=== PATIENT | male | born 1965 | race Caucasian/White ===

== ENCOUNTER 2016-10-04 14:02 | Emergency (ER) | payer OTHER ==
[~2016-10-04] VITALS: Ht 167.6 cm; Wt 79.8 kg
[2016-10-04] MEDS ORDERED: SULFAMETHOXAZO1 EAC1 PO (14:43)
[2016-10-04] MEDS ORDERED: ZETIA10 M1 PO (14:43)
[2016-10-04 15:48] LABS: ABSOLUTE BASOPHIL COUNT 0 /CUMM (0.0-0.2); ABSOLUTE EOSINOPHIL COUNT 0 /CUMM (0.0-0.7); ABSOLUTE GRANULOCYTE CT 13.4 /CUMM (1.4-6.5); ABSOLUTE LYMPH COUNT 0.9 /CUMM (1.2-3.4); ABSOLUTE MONOCYTE COUNT 1.6 /CUMM (0.10-0.60); BASOPHIL % 0.1 % (0.0-2.0); EOSINOPHIL % 0.1 % (0-5); GRANULOCYTE % 84.1 % (42.2-75.2); HEMATOCRIT 40.5 % (42-52); MEAN CORPUSCULAR HGB 32.5 PG (27.0-31.0); MEAN CORPUSCULAR HGB CONC 34.1 G/DL (33.0-37.0); MEAN CORPUSCULAR VOLUME 95.2 FL (80.0-94.0); MEAN PLATELET VOLUME 6.8 FL (7.4-10.4); PLATELET COUNT 296 /CUMM (130-400); RBC DISTRIBUTION WIDTH 12.9 % (11.5-14.5); RED BLOOD CELL CT 4.25 /CUMM (4.70-6.10); WHITE BLOOD CELL COUNT 15.9 /CUMM (4.8-10.8)
--- NOTE | 2016-10-04 15:58 | RADIOLOGY REPORT ---
EXAMINATION: XR PORTABLE CHEST CLINICAL INFORMATION: Fatigue and tachycardia. Sepsis. Evaluate for pneumonia. COMPARISON: None TECHNIQUE: Portable AP view of the chest was obtained. FINDINGS: Lungs are hypoinflated and without focal consolidation or interstitial edema. There is no pleural effusion or pneumothorax. Cardiac silhouette is normal in size. The mediastinal and hilar contours are normal. Bones are unremarkable. IMPRESSION: No acute findings; no evidence of pneumonia, pulmonary edema or pleural effusion.
--- NOTE | 2016-10-04 16:44 | ED GENERAL ADULT ---
See Addendum History of Present Illness General Chief Complaint: General Adult Stated Complaint: DEHYDRATION Source: patient Exam Limitations: no limitations Allergies Coded Allergies: No Known Allergies (10/04/16) Triage Note: 51 Y/O MALE C/O ? DEHYDRATION. STATES HE HAS BEEN SICK FOR OVER A WEEK WITH N/V/D, FEELS "DISORIENTED". STATES HE IS ABLE TO TOLERATE LIQUIDS BUT NO FOOD. C/O BODY AND MUSCLE ACHES. AFEBRILE. TACHYCARDIC 120'S-130'S. Triage Nurses Notes Reviewed? yes HPI: 51 year old man with a past medical history of hypertension seen for evaluation of feeling ill with associated nausea, vomiting, and diarrhea. He reports being in his normal state of health until 11 days ago when he helped multiple neighbors shovel snow during the snow storm. He reports feeling fatigued until that following Sunday when he developed associated nausea, vomiting, and diarrhea. He admits to feeling disoriented at times and dizzy, which he attributes to dehydration. Today he saw his primary care provider at [facility] whom reportedly did a urine dipstick and diagnosed a urinary tract infection for which he was prescribed Bactrim. In lieu of picking of this prescription he came to the [facility] ED for further evaluation. (DEVON MCCURDY,JOSE M) Vital Signs & Intake/Output Vital Signs & Intake/Output Vital Signs Date Time Temp Pulse Resp B/P Pulse O2 O2 Flow FiO2 Ox Delivery Rate 10/04 1832 99.0 105 18 136/78 95 Room Air Room Air 10/04 1629 98.8 10/04 1622 98.8 102 20 135/77 93 Room Air 10/04 1455 101.8 10/04 1429 101.8 113 22 96 Room Air 10/04 1407 98.0 132 16 158/91 95 Room Air Reconcile Medications Ciprofloxacin HCl 500 MG TABLET 1 TAB PO BID PYELONEPHRITIS Ezetimibe (Zetia) 10 MG TABLET 1 TAB PO DAILY CHOLESTEROL (Reported) Sulfamethoxazole/Trimethoprim (Sulfamethoxazole-Tmp Ds Tablet) 800 MG-160 MG TABLET 1 TAB PO BID INFECTION (Reported) (AZAR MCCURDY,JA Patricia) Past History Travel History Traveled to [place] past 21 day No Medical History Any Pertinent Medical History? 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 No (JOSE M OSORIO MD) Review of Systems Review of Systems Constitutional: Reports: see HPI. (JOSE M OSORIO MD) Physical Exam Physical Exam General Appearance: well developed/nourished, no apparent distress, alert, awake Comments: General - well developed, well nourished, middled aged man in no acute distress Skin - warm and clammy to touch without brusing or rashes HEENT - NCAT, PERRL, EOMI, dry mucous membranes, anicteric sclera CVS - S1, S2 w/o m/g/r Resp - CTA Bilaterally w/o wheezing/rhonchi/crackles GI - Soft, nontender, nondistended, bowel sounds intact Neuro - Awake and alert, CN II - XII grossly intact Ext - normal pulses, no cyanosis/clubbing/edema Core Measures ACS in differential dx? No CVA/TIA Diagnosis: No Severe Sepsis Present: No Septic Shock Present: No (JOSE M OSORIO MD) Progress Differential Diagnoses I considered the following diagnoses in my evaluation of the patient: urinary tract infection, prostatitis Initial ED EKG: none Comments: Complete blood count demonstrates leukocytosis. CMP demonstrates multiple electrolyte abnormalities most likley secondary to dehydration. UA is suggestive of a urinary tract infection. Patient was given intravenous fluid resuscitation and a dose of Ceftriaxone. Given patients elevated temperature, elevated heart rate and positive urinalysis he meets criteria for sepsis. CT scan demonstrated pyelonephritis. Patient was educated about these findings, he was instructed to take ciprofloxacin for a total antibiotic course of 14 days and to follow up with his primary care provider after discharge. (JOSE M OSORIO MD) Plan of Care: Orders Procedure Date/time Status LACTIC ACID 10/04 1807 Active RAPID VIRAL INFLUENZA A 10/04 1507 Complete CULTURE,URINE 10/04 1507 Active BLOOD CULTURE 10/04 1507 Active URINALYSIS 10/04 1507 Complete LACTIC ACID 10/04 1507 Complete COMPREHENSIVE METABOLIC PANEL 10/04 1507 Complete CBC WITHOUT DIFFERENTIAL 10/04 1507 Complete EKG 10/04 1412 Active Laboratory Tests 10/04/16 1532: Urine Color YEL, Urine Clarity HAZY H, Urine pH 6.5, Ur Specific Newton <= 1.005, Urine Protein 30 H, Urine Ketones 40 H, Urine Nitrite NEG, Urine Bilirubin NEG, Urine Urobilinogen 1.0, Ur Leukocyte Esterase MOD H, Ur Microscopic SEDIMENT EXAMINED, Urine RBC 5-10 H, Urine WBC 10-15 H, Ur Epithelial Cells FEW, Urine Hemoglobin MOD H, Urine Glucose NEG 10/04/16 1529: Anion Gap 14, Estimated GFR > 60, BUN/Creatinine Ratio 7.0, Glucose 120 H, Lactic Acid 0.7, Calcium 8.1 L, Total Bilirubin 0.7, AST 25, ALT 41, Alkaline Phosphatase 99, Total Protein 6.0 L, Albumin 3.2 L, Globulin 2.8, Albumin/ Globulin Ratio 1.1, CBC w Diff NO MAN DIFF REQ, RBC 4.25 L, MCV 95.2 H, MCH 32.5 H, RDW 12.9, MPV 6.8 L, Gran % 84.1 H, Lymphocytes % 5.8 L, Monocytes % 9.9 H, Eosinophils % 0.1, Basophils % 0.1, Absolute Granulocytes 13.4 H, Absolute Lymphocytes 0.9 L, Absolute Monocytes 1.6 H, Absolute Eosinophils 0, Absolute Basophils 0, PUBS MCHC 34.1 Microbiology 10/04 1619 NASOPHARYN: Influenza Virus A & B Rapid Smear - COMP 10/04 1619 BLOOD: Blood Culture - RECD 10/04 1532 URINE ROUT: Urine Culture - RECD 10/04 1529 BLOOD: Blood Culture - RECD Departure Departure Disposition: HOME OR SELF CARE Condition: Stable Clinical Impression Primary Impression: Pyelonephritis Referrals: JADA MCKENZIE (PCP/Family) Additional Instructions: Take ciprofloxacin as directed. FOllow up with your primary care provider after discharge. Call 911 or return to the ED should your symptoms worsen. Departure Forms: Customer Survey General Discharge Information Prescriptions: Current Visit Scripts Ciprofloxacin HCl 1 TAB PO BID #28 TAB (DEVON MCCURDY,JOSE M) Resident Co-Sign Statement Statement: ED Attending supervision documentation- [X] I saw and evaluated the patient. I have also reviewed all the pertinent lab results and diagnostic results. I agree with the findings and the plan of care as documented in the Resident's documentation. [X] I have reviewed the ED Record and agree with the Resident's documentation. [] Additions or exceptions (if any) to the Resident's note and plan are summarized below: [I have personally seen and examined this patient. Patient presents with one- week history of fevers, shaking chills, myalgias and intermittent confusion. Patient denies any blurry vision or neck pain. There is no nausea or vomiting. On exam he is febrile. His neck is supple and there is no JVD. His cardiac exam is regular rate and rhythm with no murmurs. His abdomen is soft and nontender, nondistended with positive bowel sounds. His back shows no CVA tenderness. On rectal exam his prostate is warm to touch and slightly boggy. His extremities show no edema or erythema. His CAT scan is more consistent with cystitis with stranding adding up towards the kidney. At this point patient will be started on antibiotics to cover both the renal system as well as the prostate. Patient advised that he may continue to run high fevers from to 4 days. Patient feels comfortable going home.] (AZAR MCCURDY,JA Patricia) Critical Care Note Critical Care Note Critical Care Time: non-applicable (DEVON MCCURDY,JOSE M)
--- NOTE | 2016-10-04 17:36 | CT SCAN REPORT ---
EXAMINATION: CT ABDOMEN AND PELVIS WITH CONTRAST CLINICAL INFORMATION: Warm boggy prostate. Evaluate for intra-abdominal abscess. COMPARISON: None. TECHNIQUE: Multidetector CT volumetric acquisition of the abdomen and pelvis was performed after the administration of 95 mL of intravenous Optiray 320. The data set was reformatted in the sagittal and coronal planes and reviewed on an independent workstation. DLP: 311.39 mGy-cm. FINDINGS: LOWER CHEST: Mild dependent atelectasis is seen in the lung bases bilaterally. LIVER, GALLBLADDER, BILIARY TREE: Liver normal size and attenuation. No focal cystic or solid mass or intra-or extrahepatic ductal dilatation. Hepatic and portal veins patent. Gallbladder well distended and within normal limits. PANCREAS: Mildly atrophic. No ductal dilatation, mass, or surrounding stranding. SPLEEN: Normal size and appearance. Splenic vein patent. ADRENAL GLANDS AND KIDNEYS: Adrenal glands normal. Kidneys bilaterally symmetric in size and function. No focal mass, hydronephrosis, or nephrolithiasis. There is, however, prominent bilateral perinephric stranding and slight thickening of Gerota's fascia. There is also small amount of retroperitoneal edema seen tracking along the anterior pararenal space into the pelvis anterior to the aorta and the aortic bifurcation. URETERS AND BLADDER: Ureters decompressed and within normal limits. Bladder only partially distended and suboptimally assessed, but there is diffuse mucosal hyperenhancement and diffuse hyperemia in the pericystic fat. PELVIC ORGANS: Prostate gland is not enlarged and overall unremarkable in appearance. Seminal vesicles appear slightly rounded and may be mildly edematous. The periprostatic fat is unremarkable. No focal abscess collection is seen. GASTROINTESTINAL TRACT: Nonspecific mild fluid distention of ileal small bowel loops is seen, perhaps a subtle ileus pattern. No bowel wall thickening, mucosal hyperenhancement or mesenteric edema or hyperemia is noted. The colon is decompressed and unremarkable. Appendix in right lower quadrant normal. LYMPHOVASCULAR STRUCTURES: Abdominal aorta normal in caliber. No abdominal or pelvic adenopathy is seen. BONES: Mild multilevel vertebral spondylosis is seen in the thoracolumbar spine. IMPRESSION: The predominant finding is that of diffuse prominent retroperitoneal stranding and mild edema extending from the level of the kidneys down to the bladder. The bladder is diffusely thick-walled and shows mucosal hyperenhancement and surrounding hyperemia. Findings are suspicious for acute cystitis with associated mild inflammatory changes spreading through the retroperitoneum. No focal drainable abscess collection is seen. By imaging, the prostate gland appears unremarkable. Seminal vesicles may be mildly edematous.
[2016-10-04] MEDS ORDERED: CIPROFLOXACIN500 M2 PO (18:15)
[2016-10-04 18:32] VITALS: BP 136/78
[2016-10-05] MEDS ORDERED: MULTI-DAY VITA1 EACH PO (17:26)
[2016-10-05] MEDS ORDERED: CRESTOR20 M2 PO (17:26)
== END 2016-10-04 18:48 ==
LOC: ERH 14:02
PROVIDERS: Internal Medicine Interventional Cardiology
DX: N12 Tubulo-interstitial nephritis, not specified as acute or chronic (principal)
CPT/HCPCS: 74177; 81001; 87040; 87086; 87804; 87804-59; 93005; 93010; 96374; 96375; J0131; J0696

== ENCOUNTER 2016-10-05 14:14 | Inpatient (IN) | payer OTHER ==
[~2016-10-05] VITALS: Ht 167.6 cm; Wt 79.8 kg
[~2016-10-05 14:14] MED LIST: CIPROFLOXACIN500 M2 PO; SULFAMETHOXAZO1 EAC1 PO; ZETIA10 M1 PO
[2016-10-05 14:42] LABS: ABSOLUTE BASOPHIL COUNT 0 /CUMM (0.0-0.2); ABSOLUTE EOSINOPHIL COUNT 0 /CUMM (0.0-0.7); ABSOLUTE GRANULOCYTE CT 15.2 /CUMM (1.4-6.5); ABSOLUTE LYMPH COUNT 0.6 /CUMM (1.2-3.4); ABSOLUTE MONOCYTE COUNT 0.7 /CUMM (0.10-0.60); BASOPHIL % 0.3 % (0.0-2.0); EOSINOPHIL % 0.1 % (0-5); GRANULOCYTE % 91.4 % (42.2-75.2); MEAN CORPUSCULAR HGB 32.2 PG (27.0-31.0); MEAN CORPUSCULAR HGB CONC 33.4 G/DL (33.0-37.0); MEAN CORPUSCULAR VOLUME 96.4 FL (80.0-94.0); MEAN PLATELET VOLUME 6.6 FL (7.4-10.4); PLATELET COUNT 289 /CUMM (130-400); RBC DISTRIBUTION WIDTH 13.2 % (11.5-14.5); RED BLOOD CELL CT 4.36 /CUMM (4.70-6.10); WHITE BLOOD CELL COUNT 16.7 /CUMM (4.8-10.8)
--- NOTE | 2016-10-05 16:42 | ED GENERAL ADULT ---
History of Present Illness General Chief Complaint: General Adult Stated Complaint: CALLED BY ER TO COME BACK Source: patient, old records Exam Limitations: no limitations Vital Signs & Intake/Output Vital Signs & Intake/Output Vital Signs Date Time Temp Pulse Resp B/P Pulse O2 O2 Flow FiO2 Ox Delivery Rate 10/07 0701 98.0 78 16 130/90 94 Room Air 10/06 2228 99.0 97 20 130/70 94 Room Air 10/06 2008 99.0 10/06 1703 100.3 10/06 1412 99.0 91 20 130/72 91 10/06 1251 99.0 10/06 1152 101.0 ED Intake and Output 10/07 0000 10/06 1200 Intake Total 3220 1400 Output Total Balance 3220 1400 Intake, IV 1100 800 Intake, Oral 2120 600 Allergies Coded Allergies: No Known Allergies (10/04/16) Reconcile Medications Ciprofloxacin HCl 500 MG TABLET 1 TAB PO BID PYELONEPHRITIS Ezetimibe (Zetia) 10 MG TABLET 1 TAB PO DAILY CHOLESTEROL (Reported) Multivitamin (Multi-Day Vitamins) 1 EACH TABLET 1 TAB PO DAILY SUPPLEMENT ( Reported) Rosuvastatin Calcium (Crestor) 20 MG TABLET 1 TAB PO DAILY CHOLESTEROL ( Reported) Triage Note: PT WAS SEEN IN ER YESTERDAY FOR BEING WEAK, HIGH FEVER AND NO APPETITTE. STATES THAT HE WAS CALLED BY 2 DIFFERENT DOCTORS TODAY TO RETURN DUE TO 2 POSITIVE BLOOD CULTURES. PT IS AFEBRILE AT THIS TIME. Triage Nurses Notes Reviewed? yes HPI: Patient is a 51-year-old male called to return to emergency department for evaluation of possible blood cultures. Patient was seen in the emergency department yesterday for evaluation of weakness, fevers, chills. Patient was discharged home on ciprofloxacin for pyelonephritis. Today patient had both sets of blood cultures grew out gram-negative rods along with his urine culture showing gram-negative rods. Patient had fevers yesterday, reports that the fevers resolved after his dose of IV Tylenol. Today patient has felt diaphoretic but reports he feels improved compared with yesterday. Symptoms were severe yesterday. Denies abdominal pain, back pain, nausea, vomiting, dyspnea. Past History Travel History Traveled to [place] past 21 day No Medical History Any Pertinent Medical History? 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 No Review of Systems Review of Systems Constitutional: Reports: chills, diaphoresis, fever, malaise, weakness. EENTM: Reports: no symptoms. Respiratory: Denies: cough, short of breath. Cardiovascular: Denies: chest pain. GI: Denies: abdominal pain, nausea, vomiting. Genitourinary: Reports: no symptoms. Musculoskeletal: Denies: back pain, neck pain. Skin: Reports: no symptoms. Neurological/Psychological: Reports: no symptoms. Hematologic/Endocrine: Reports: no symptoms. Immunologic/Allergic: Reports: no symptoms. Physical Exam Physical Exam General Appearance: well developed/nourished, alert, awake Head: atraumatic, normal appearance Eyes: Bilateral: normal appearance, PERRL, EOMI. Ears, Nose, Throat: normal pharynx, normal ENT inspection, hearing grossly normal Neck: normal inspection, supple, full range of motion Respiratory: normal breath sounds, chest non-tender, no respiratory distress, lungs clear Cardiovascular: tachycardia (REGULAR RHYTHM, NO MURMUR) Gastrointestinal: normal bowel sounds, soft, non-tender Back: normal inspection, normal range of motion Extremities: normal inspection, normal capillary refill, normal range of motion, no edema Neurologic/Psych: no motor/sensory deficits, awake, alert, oriented x 3, normal gait, normal mood/affect Skin: intact, normal color, warm/dry Lymphatic: no anterior cervical eduin Core Measures ACS in differential dx? No CVA/TIA Diagnosis: No Severe Sepsis Present: No Septic Shock Present: No Progress Differential Diagnoses I considered the following diagnoses in my evaluation of the patient: Sepsis, bacteremia, urinary tract infection, pneumonia, intra-abdominal infection Plan of Care: Orders Procedure Date/time Status MAGNESIUM 10/07 0600 Active CBC WITHOUT DIFFERENTIAL 10/07 0600 Active BASIC ELECTROLYTES PLUS BUN&CR 10/07 06 Active MAGNESIUM 10/06 2000 Complete Current Medications Sig/Claudette Start time Last Medication Dose Stop Time Status Admin Docusate Sodium 100 MG BID 10/06 1345 AC (Colace) Senna 187 MG AT BEDTIME 10/06 1345 AC (Senokot) Polyethylene Glycol 17 GM DAILY 10/06 1343 AC (Miralax) Enoxaparin Sodium 40 MG DAILY 10/06 1000 AC (Lovenox) Laboratory Tests 10/06/16 2000: Magnesium 2.4 H Patient is unsure if he can stay in the hospital due to a commitment on Sunday. I discussed with the patient his results from yesterday, the dangers of bacteremia and importance of IV antibiotics. With patient's white blood cell count increasing, his diaphoresis today and tachycardia on exam. The patient should be admitted for further IV antibiotics and evaluation. IV ceftriaxone ordered. 10/05/2016 5:09:52 PM: Discussed with and evaluated by Dr. Reddy ([facility]) Initial ED EKG: none Departure Departure Time of Disposition: 1816 Disposition: STILL A PATIENT Condition: Stable Clinical Impression Primary Impression: Bacteremia due to Gram-negative bacteria Secondary Impressions: Urinary tract infection Qualifiers: Urinary tract infection type: site unspecified Hematuria presence: without hematuria Qualified Code: N39.0 - Urinary tract infection, site not specified Referrals: JADA MCKENZIE (PCP/Family) Departure Forms: Customer Survey General Discharge Information Admission Note Spoke With: ELISEO BELLO MD Documentation of Exam: Documentation of any treatments & extenuating circumstances including Concerns Regarding Discharge (functional status, medication knowledge or non-compliance, living conditions, etc.) that warrant an admission rather than observation: Panculture, IV antibiotics. Patient with increasing white blood cell count despite being on antibiotics for approximately 24 hours. Concern given 2 out of 2 sets of cultures positive that if discharged patient will continue to worsen. Critical Care Note Critical Care Note Critical Care Time: non-applicable
[2016-10-05] MEDS ORDERED: MULTI-DAY VITA1 EACH PO (17:26)
[2016-10-05] MEDS ORDERED: CRESTOR20 M2 PO (17:26)
[2016-10-05 20:53] VITALS: BP 132/80
--- NOTE | 2016-10-05 21:42 | Admission Certification ---
Admission Certification Certification Statement - As attending physician, I certify that at the time of - admission, based on clinical presentation, severity of - symptoms, need for further diagnostic testing and - therapeutic interventions, and risk of adverse outcomes - without in-hospital treatment, in my clinical assessment, - this patient requires an acute hospital stay for a minimum - of two nights or longer. I have also considered psychsocial - factors such as support system, advanced age, financial - issues, cognitive issues, and failed out-patient treatments, - past re-admission history, safety of patient, and lack of - compliance as applicable. Specific rationale supporting this admission is: Sepsis, gram negative bacteremia 2/2 UTI and pyelonephritis. KENDRA.
--- NOTE | 2016-10-05 22:31 | History & Physical ---
MANUEL MCCURDY,ESTHELA 10/05/16 2230: General Information and HPI MD Statement: I have seen and personally examined BRANDYN GENTILE and documented this H&P. The patient is a 51 year old M who presented with a patient stated chief complaint of []. Source of Information: patient, old records History of Present Illness: Patient is a 51-year-old male with significant past medical history of hyperlipidemia, presented with chief complaints of nausea, vomiting, diarrhea , generalized body ache since last 2 weeks. Patient claims that he was diagnosed as having urinary tract infection by his PCP, when he was complaining of generalized body ache and advised to take Bactrim. But he wanted to confirm and so he came to the [place] ED. Here, he found to have temperature of 101.8. blood work up was done and advised to take tablet ciprofloxacin and sent home yesterday. Later on, on his blood cultures come back positive for gram-negative rods, so he was called back to get IV antibiotic. CT scan of abdomen was already done, which showed acute cystitis with extension of inflammation to retroperitoneal area. On further evaluation He states that he was also having polyuria, hesitancy. He is sexually active and having only 1 partner. He denies of any discharge, itching around penis, foul-smelling urine, nephrolithiasis, sexually transmitted infection, hematuria, past history of urinary tract infection. Patient also complaining of episodes of no breathing. He was advised to have sleep study 6 months ago, but he is not able to make it. He was requesting to get it done during this admission. Personal history-denies smoking, uses alcohol occasionally, denies use of any recreational drugs. Allergies/Medications Allergies: Coded Allergies: No Known Allergies (10/04/16) Home Med list Ciprofloxacin HCl 500 MG TABLET 1 TAB PO BID PYELONEPHRITIS Ezetimibe (Zetia) 10 MG TABLET 1 TAB PO DAILY CHOLESTEROL (Reported) Multivitamin (Multi-Day Vitamins) 1 EACH TABLET 1 TAB PO DAILY SUPPLEMENT ( Reported) Rosuvastatin Calcium (Crestor) 20 MG TABLET 1 TAB PO DAILY CHOLESTEROL ( Reported) Compliance With Home Meds: GOOD Past History Travel History Traveled to [place] past 21 day No Medical History Neurological: NONE EENT: NONE Cardiovascular: NONE Respiratory: NONE Gastrointestinal: NONE Hepatic: NONE Renal: NONE Musculoskeletal: NONE Psychiatric: NONE Endocrine: NONE Blood Disorders: NONE Cancer(s): NONE 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 Denies: chills, diaphoresis, malaise. EENTM: Denies: no symptoms. Cardiovascular: Denies: chest pain, edema, orthopena, palpitations, peripheral edema. Respiratory: Denies: cough, hemoptysis, orthopnea, short of breath, sputum production, stridor. GI: Reports: diarrhea. Denies: abdominal pain, bloating, constipation, distention, bowel incontinence, melena, nausea, bloody stool, changes in stool. Genitourinary: Reports: frequency, pain. Denies: discharge, dysuria, hematuria, hesitation, nocturia. Musculoskeletal: Reports: back pain. Denies: gout, joint pain, joint swelling, muscle pain, muscle stiffness. Skin: Denies: no symptoms. Neurological/Psychological: Denies: no symptoms. Exam & Diagnostic Data Last 24 Hrs of Vital Signs/I&O Vital Signs Date Time Temp Pulse Resp B/P Pulse O2 O2 Flow FiO2 Ox Delivery Rate 10/05 2322 100.9 10/05 2052 100.9 108 20 132/80 99 Room Air 10/05 2020 99.9 102 18 144/87 97 Room Air 10/05 1813 99 10/05 1812 99.2 104 20 140/87 99 Room Air 10/05 1425 97.8 100 18 117/79 96 Room Air Intake & Output 10/06 0800 10/06 0000 10/05 1600 Intake Total 1000 Output Total Balance 1000 Intake, IV 1000 Patient 79.832 kg 79.832 kg Weight Physical Exam General Appearance Alert, Oriented X3, Cooperative, No Acute Distress Skin No Rashes, No Breakdown HEENT Atraumatic, PERRLA, EOMI Neck Supple, No JVD Cardiovascular Normal S1, Normal S2 Lungs Clear to Auscultation, Normal Air Movement Abdomen Soft, No Tenderness Neurological Normal Speech Extremities No Clubbing, No Cyanosis, No Edema Vascular Normal Pulses, Pulses Symmetrical Last 24 Hrs of Labs/[place]: Laboratory Tests 10/05/16 1641: Urine Color YEL, Urine Clarity CLEAR, Urine pH 6.0, Ur Specific [place] 1.010, Urine Protein 100 H, Urine Ketones 15 H, Urine Nitrite NEG, Urine Bilirubin NEG, Urine Urobilinogen 2.0 H, Ur Leukocyte Esterase MOD H, Ur Microscopic SEDIMENT EXAMINED, Urine RBC 5-10 H, Urine WBC 25-50 H, Ur Epithelial Cells FEW, Urine Hemoglobin MOD H, Urine Glucose NEG 10/05/16 1433: Anion Gap 14, Estimated GFR 59 L, BUN/Creatinine Ratio 10.0, Glucose 123 H, Lactic Acid 1.3, Calcium 8.3 L, CBC w Diff MAN DIFF ORDERED, RBC 4.36 L, MCV 96.4 H, MCH 32.2 H, RDW 13.2, MPV 6.6 L, Gran % 91.4 H, Lymphocytes % 3.8 L , Monocytes % 4.4, Eosinophils % 0.1, Basophils % 0.3, Absolute Granulocytes 15.2 H, Segmented Neutrophils 89 H, Band Neutrophils 5, Absolute Lymphocytes 0.6 L, Lymphocytes 1 L, Monocytes 5, Absolute Monocytes 0.7 H, Absolute Eosinophils 0, Absolute Basophils 0, Platelet Estimate ADEQUATE, Normocytic RBCs VERIFIED, Normochromic RBCs VERIFIED, PUBS MCHC 33.4 Microbiology 10/05 1441 BLOOD: Blood Culture - RECD 10/05 1433 BLOOD: Blood Culture - RECD Diagnostic Data EKG Results NSR CXR Results No acute findings; no evidence of pneumonia, pulmonary edema or pleural effusion. Other Results CT ABD /Pelvis -IMPRESSION: The predominant finding is that of diffuse prominent retroperitoneal stranding and mild edema extending from the level of the kidneys down to the bladder. The bladder is diffusely thick-walled and shows mucosal hyperenhancement and surrounding hyperemia. Findings are suspicious for acute cystitis with associated mild inflammatory changes spreading through the retroperitoneum. No focal drainable abscess collection is seen. By imaging, the prostate gland appears unremarkable. Seminal vesicles may be mildly edematous. Assessment/Plan Assessment: Patient is a 51-year-old male with significant past medical history of hyperlipidemia, presented with chief complaints of nausea, vomiting, diarrhea , generalized body ache since last 2 weeks Vital signs- temperature 99.2, pulse 104, respiratory rate 20, blood pressure 140/87, SPO2 99% on room air Pertinent labs - WBC 16.7, granulocytes 91.4, K-3.4, creatinine 1.3, urine protein 100, ketones 15, leukocyte Estrase moderate, RBC 5-10, WBC 25-50, blood culture shows gram-negative rods CT scan of The pelvis showed -acute cystitis with associated mild inflammatory changes spreading through the retroperitoneum. Chest x-ray-no any acute cardiopulmonary abnormalities Plan - Urosepsis - * As blood culture is growing gram-negative rods and patient is having urinary symptoms and also improved after giving antibiotic supports that he is having gram-negative septicemia secondary to UTI. * We'll admit the patient to general medical floor * We will give IV antibiotic including injection ceftriaxone 1 gram IV once a day * We will advise to increase her by mouth intake * Strict intake output charting * We will follow lactic acid trend * We will follow the blood culture and change the antibiotic accordingly * Vital signs every shift * We will follow CBC/BEP KENDRA * We will give IV fluids 100 mL per hour * Stict intake output charting * We will regularly monitor BUN/creatinine Hyperlipidemia- * We will continue Crestor, Zetia Diet-heart healthy diet DVT prophylaxis-ALP S/heparin CODE STATUS-full code As Ranked By This Provider Problem List: 1. Acute cystitis 2. Septicemia 3. Urinary tract infection Qualifiers Urinary tract infection type: site unspecified Hematuria presence: without hematuria Qualified Code: N39.0 - Urinary tract infection, site not specified Core Measures/Miscellaneous Acute Coronary Syndrome ACS Diagnosis: No Cerebrovascular Accident CVA/TIA Diagnosis: No Congestive Heart Failure CHF Diagnosis: No Venous Thromboembolism VTE Risk Factors: Age > 40 VTE Prophylaxis Ordered Inpt: Mechanical (ALPS/TEDS) No Mech VTE prophylaxis d/t: No contraindications No VTE Pharm Prophylaxis d/t: No contraindications VTE Diagnosis: No VTE Type: NONE VTE Confirmed by (Test): NONE Severe Sepsis Severe Sepsis Present: No Septic Shock Septic Shock Present: No Miscellaneous Documentation Attending Case Discussed With: ELISEO BELLO MD Primary Care Physician: JADA MCKENZIE Patient sees these Specialists none Level of Patient Care: General Medicine GERALDINE BELLO MD 10/06/16 0340: Attending MD Review Statement Attending Statement Attending MD Statement: examined this patient, discuss w/resident/PA/HOME MAKER, agreed w/resident/PA/HOME MAKER Attending Assessment/Plan: 51 yo M with h/o HLD, was seen in ER 1 day prior for 2-week h/o nausea, vomiting , diarrhea, associated with shaking chills, myalgias, fever of 101 and confusion. He does report urinary symptoms of incomplete bladder emptying. Leukocytosis 15.9, no bandemia. UA positive. CT suggestive of bilateral perinephric stranding, edema extending from kidneys to bladder, acute cystitis with inflammatory changes spreading to retroperitoneum. He was discharged on 14- day course of Cipro for pyelonephritis. He was recalled today since his blood and urine cultures are growing gram negative rods. Repeat labs show WBC 16.7, bands 5, K 3.4, creat 1.2 . Admitting to for sepsis and gram negative bacteremia 2/2 UTI and pyelonephritis, acute kidney injury. Repeat blood cultures, IV fluids, IV ceftriaxone, taper abx based on cultures. Trend BUN/ creatinine. Replete electrolytes. Tylenol for fever and pain management. DVT ppx ELBAZENAIDA ARTHUR 10/06/16 0348: Resident Review Statement Resident Statement: discussed with intern architect Other Findings: His 51-year-old man with past medical history of hyperlipidemia presented to ER because he got a call from ER physician for positive blood and urine culture growing gram-negative rods. Please note patient was here at [facility] one day prior to admission for nausea, vomiting and diarrhea. On the same day he was seen by his primary care provider at [facility] who reportedly did a urine dipstick and diagnosed a urinary tract infection for which he was prescribed Bactrim. In lieu of picking of this prescription he came to the [place] ED for further evaluation. In ER he got CT abdomen and pelvis with IV contrast that shows findings suggestive of acute cystitis/pyelonephritis. He was given IV fluids and 1 dose of IV ceftriaxone. He was educated about these findings and was discharged on ciprofloxacin. Today patient feels improved compared with yesterday. He denies any nausea, vomiting, abdominal pain, diarrhea, constipation, back pain. He reports having urinary frequency, hesitancy and incomplete emptying of bladder for last few weeks. Patient admits having a new girlfriend recently. He denies any penile discharge or urinary symptoms. Vitals on admission: Temperature 97.8, pulse 100, respiratory rate 18, blood pressure 117/79 oxygen saturation 96% on room air Pertinent physical exam findings: Tachycardia on cardiac auscultation. Abdominal exam normal. No CVA tenderness bilaterally Pertinent labs: WBC count 16.7, potassium 3.4, creatinine 1.3, glucose 123. UA is showing moderate urine leukocyte esterase with 25-50 urine WBCs. Chest x-ray that was done yesterday did not show any evidence of pneumonia, pulmonary edema or pleural effusion. Problem list 1. Gram-negative rods bacteremia of urological origin. CT abdomen and pelvis with contrast suggestive of acute cystitis/pyelonephritis. 2. KENDRA and Dehydration 3. History of hyperlipidemia PLAN We will admit patient on general medicine floor. Monitor vitals closely. Continue IV hydration. Follow blood cultures. Follow-up urine culture sensitivities and organism identification. Tylenol for fever. We will continue IV ceftriaxone. We'll continue his home medications. Repeat labs in a.m. Avoid nephrotoxins. Pain management pathway. Subcutaneous Lovenox for DVT prophylaxis. Regular diet. Full code
[2016-10-06 06:43] VITALS: BP 126/70
--- NOTE | 2016-10-06 06:59 | PN- Housestaff ---
Subjective Follow-up For: fever UTI and sepsis Subjective: Patient is alert and oriented, in no distress, has slept well last night, does not report any abdominal pain, back pain, dysuria, dizziness, palpitation, SOB. Reports frequency, not hesitancy. Denies any history of kidney stones, inflammation or infection of the prostate in the past. Review of Systems Constitutional: Reports: fever. Denies: chills, malaise, weakness. EENTM: Reports: no symptoms. Cardiovascular: Denies: chest pain, palpitations. Respiratory: Denies: cough, short of breath, sputum production. Gastrointestinal: Denies: abdominal pain, diarrhea, nausea, changes in stool, vomiting. Genitourinary: Reports: frequency. Denies: discharge, dysuria, hesitation, nocturia, pain. Musculoskeletal: Reports: no symptoms. Skin: Reports: no symptoms. Neurological/Psychological: Reports: no symptoms. Hematologic/Endocrine: Reports: no symptoms. Objective Last 24 Hrs of Vital Signs/I&O Vital Signs Date Time Temp Pulse Resp B/P Pulse O2 O2 Flow FiO2 Ox Delivery Rate 10/06 0643 97.9 83 20 126/70 97 Room Air 10/06 0022 99.3 10/05 2323 100.9 10/05 2053 100.9 108 20 132/80 99 Room Air 10/05 2020 99.9 102 18 144/87 97 Room Air 10/05 1813 99 10/05 1812 99.2 104 20 140/87 99 Room Air 10/05 1425 97.8 100 18 117/79 96 Room Air Intake & Output 10/06 1600 10/06 0800 10/06 0000 Intake Total 1400 1490 Output Total Balance 1400 1490 Intake, IV 800 1010 Intake, Oral 600 480 Patient 79.832 kg Weight Physical Exam General Appearance: Alert, Oriented X3, Cooperative, No Acute Distress Skin: No Rashes, No Breakdown, No Significant Lesion HEENT: Atraumatic, EOMI Neck: Supple, No JVD Cardiovascular: Regular Rate, Normal S1, Normal S2, No Murmurs Lungs: Clear to Auscultation, Normal Air Movement Abdomen: Normal Bowel Sounds, Soft, No Tenderness Neurological: Normal Speech, Strength at 5/5 X4 Ext, Normal Tone, Sensation Intact, Cranial Nerves 3-12 NL Extremities: No Edema, Normal Pulses, No Tenderness/Swelling Vascular: Normal Pulses, Pulses Symmetrical Current Medications: Current Medications Sig/Claudette Start time Last Medication Dose Route Stop Time Status Admin Acetaminophen 650 MG Q6P PRN 10/05 2214 AC PO Acetaminophen 1,000 MG ONCE ONE 10/05 2214 DC 10/05 N/A 1 UNIT IV 10/05 2228 2323 Atorvastatin Calcium 20 MG DAILY 10/06 1000 AC PO Ceftriaxone Sodium 1,000 MG 1700 10/06 1700 AC IV Ceftriaxone Sodium 0 .STK-MED ONE 10/05 170 DC .ROUTE Ceftriaxone Sodium 1,000 MG ONCE ONE 10/05 1700 DC 10/05 IV 10/05 1701 1718 Enoxaparin Sodium 40 MG DAILY 10/06 1000 AC SC Ezetimibe 10 MG DAILY 10/06 1000 AC PO Heparin Sodium 5,000 UNIT Q8 10/06 0600 CAN (Porcine) SC Multivitamins 1 TAB DAILY 10/06 1000 AC Therapeutic PO Sodium Chloride 1,000 ML Q10H 10/05 2214 AC 10/05 IV 232 Sodium Chloride 1,000 ML BOLUS ONE 10/05 1699 DC 10/05 IV 10/05 1759 1718 Last 24 Hrs of Lab/[place] Results Last 24 Hrs of Labs/M[place]: Laboratory Tests 10/06/16 0650: Sodium Pending, Potassium Pending, Chloride Pending, Carbon Dioxide Pending, Anion Gap Pending, BUN Pending, Creatinine Pending, BUN/Creatinine Ratio Pending , Lactic Acid Pending, CBC w Diff Pending, WBC Pending, RBC Pending, Hgb Pending , Hct Pending, MCV Pending, MCH Pending, RDW Pending, Plt Count Pending, MPV Pending, PUBS MCHC Pending 10/05/16 1641: Urine Color YEL, Urine Clarity CLEAR, Urine pH 6.0, Ur Specific [place] 1.010, Urine Protein 100 H, Urine Ketones 15 H, Urine Nitrite NEG, Urine Bilirubin NEG, Urine Urobilinogen 2.0 H, Ur Leukocyte Esterase MOD H, Ur Microscopic SEDIMENT EXAMINED, Urine RBC 5-10 H, Urine WBC 25-50 H, Ur Epithelial Cells FEW, Urine Hemoglobin MOD H, Urine Glucose NEG 10/05/16 1433: Anion Gap 14, Estimated GFR 59 L, BUN/Creatinine Ratio 10.0, Glucose 123 H, Lactic Acid 1.3, Calcium 8.3 L, CBC w Diff MAN DIFF ORDERED, RBC 4.36 L, MCV 96.4 H, MCH 32.2 H, RDW 13.2, MPV 6.6 L, Gran % 91.4 H, Lymphocytes % 3.8 L , Monocytes % 4.4, Eosinophils % 0.1, Basophils % 0.3, Absolute Granulocytes 15.2 H, Segmented Neutrophils 89 H, Band Neutrophils 5, Absolute Lymphocytes 0.6 L, Lymphocytes 1 L, Monocytes 5, Absolute Monocytes 0.7 H, Absolute Eosinophils 0, Absolute Basophils 0, Platelet Estimate ADEQUATE, Normocytic RBCs VERIFIED, Normochromic RBCs VERIFIED, PUBS MCHC 33.4 Microbiology 10/05 1441 BLOOD: Blood Culture - RECD 10/05 1433 BLOOD: Blood Culture - RECD Assessment/Plan Assessment: Patient is a 51-year-old male with significant past medical history of hyperlipidemia, presented with chief complaints of nausea, vomiting, diarrhea , generalized body ache for 2 weeks. Patient was diagnosed with UTI by PCP, he did not take the Bactrim prescribed by the PCP and came to the ED where he was found to have fever of 101.8, blood cultures were drawn and he was sent home on ciprofloxacin. Patient took two doses of the cipro when he was called by the ED that his blood culture is growing G- rods and he came back to the ED. He is admitted for sepsis of urologic origin and is started on IV ceftriaxone. Vital signs- temperature 99.2, pulse 104, respiratory rate 20, blood pressure 140/87, SPO2 99% on room air Pertinent labs - WBC 16.7, granulocytes 91.4, K-3.4, creatinine 1.3, urine protein 100, ketones 15, leukocyte Esterase moderate, RBC 5-10, WBC 25-50, blood culture shows gram-negative rods CT scan of The pelvis showed -acute cystitis with associated mild inflammatory changes spreading through the retroperitoneum. Chest x-ray-no any acute cardiopulmonary abnormalities UA: urine protein, urine ketones, urobilinogen high, LE high, RBC 5-10, WBC 25- 50, Hb Mod. Problem list and plan: Sepsis of possible urologic origin Blood culture is growing gram-negative rods and patient is having urinary symptoms and also improved after giving antibiotic supports that he is having gram-negative septicemia secondary to UTI. * IV ceftriaxone 1 gram IV once a day * Strict intake output charting * Follow the blood culture sensitivity and change the antibiotic accordingly * Vital signs every shift * We will follow CBC/BEP KENDRA * IV fluids 100 mL per hour * Strict intake output charting * We will regularly monitor BUN/creatinine Hypomagnesemia and hypokalemia Mg 0.6, possibly due to inflammation in the kidneys (secondary to infection). Repleted with IV magnesium 4 mg total today. Also Hypokalemic for which he received 40 med Kdur. * BEP in am Hyperlipidemia * We will continue CrestorOleg Diet-heart healthy diet DVT prophylaxis-ALP / SC heparin CODE STATUS-full code Problem List: 1. Urinary tract infection 2. Septicemia 3. Bacteremia due to Gram-negative bacteria Pain Ratin Pain Location: no pain Pain Goal: Pain 4 or less Pain Plan: tylenol Tomorrow's Labs & Rationales: CBC (leukocytosis) BEP (hypokalemia)
[2016-10-06 08:03] LABS: ABSOLUTE BASOPHIL COUNT 0 /CUMM (0.0-0.2); ABSOLUTE EOSINOPHIL COUNT 0 /CUMM (0.0-0.7); ABSOLUTE GRANULOCYTE CT 10.9 /CUMM (1.4-6.5); ABSOLUTE LYMPH COUNT 0.7 /CUMM (1.2-3.4); ABSOLUTE MONOCYTE COUNT 0.9 /CUMM (0.10-0.60); BASOPHIL % 0.4 % (0.0-2.0); EOSINOPHIL % 0.1 % (0-5); MEAN CORPUSCULAR HGB 32.5 PG (27.0-31.0); MEAN CORPUSCULAR HGB CONC 33.8 G/DL (33.0-37.0); MEAN CORPUSCULAR VOLUME 96.3 FL (80.0-94.0); MEAN PLATELET VOLUME 7.4 FL (7.4-10.4); RBC DISTRIBUTION WIDTH 13.3 % (11.5-14.5); RED BLOOD CELL CT 3.78 /CUMM (4.70-6.10); WHITE BLOOD CELL COUNT 12.6 /CUMM (4.8-10.8)
[2016-10-06 08:39] LABS: HEMATOCRIT 36.4 % (42-52); PLATELET COUNT 264 /CUMM (130-400)
[2016-10-06 08:40] LABS: GRANULOCYTE % 86.3 % (42.2-75.2)
[2016-10-06 14:12] VITALS: BP 130/72
--- NOTE | 2016-10-06 16:07 | PN- Att Addend ---
Attending MD Review Statement Attending Statement Attending MD Statement: examined this patient, discuss w/resident/PA/CVICU NURSE, agreed w/resident/PA/CVICU NURSE, reviewed EMR data (avail), discussed w/nursing Attending Assessment/Plan: Laboratory Tests 10/06/16 0650: Anion Gap 11, Estimated GFR > 60, BUN/Creatinine Ratio 11.8, Lactic Acid 0.8, Magnesium 0.6 *L, CBC w Diff NO MAN DIFF REQ, RBC 3.78 L, MCV 96.3 H, MCH 32.5 H, RDW 13.3, MPV 7.4, Gran % 86.3 H, Lymphocytes % 5.7 L, Monocytes % 7.5, Eosinophils % 0.1, Basophils % 0.4, Absolute Granulocytes 10.9 H, Absolute Lymphocytes 0.7 L, Absolute Monocytes 0.9 H, Absolute Eosinophils 0, Absolute Basophils 0, PUBS MCHC 33.8 10/05/16 1641: Urine Color YEL, Urine Clarity CLEAR, Urine pH 6.0, Ur Specific [place] 1.010, Urine Protein 100 H, Urine Ketones 15 H, Urine Nitrite NEG, Urine Bilirubin NEG, Urine Urobilinogen 2.0 H, Ur Leukocyte Esterase MOD H, Ur Microscopic SEDIMENT EXAMINED, Urine RBC 5-10 H, Urine WBC 25-50 H, Ur Epithelial Cells FEW, Urine Hemoglobin MOD H, Urine Glucose NEG Vital Signs Date Time Temp Pulse Resp B/P Pulse O2 O2 Flow FiO2 Ox Delivery Rate 10/06 1412 99.0 91 20 130/72 91 10/06 1251 99.0 10/06 1152 101.0 10/06 0643 97.9 83 20 126/70 97 Room Air 10/06 0022 99.3 10/053 100.9 10/05 2052 100.9 108 20 132/80 99 Room Air 10/05 2019 99.9 102 18 144/87 97 Room Air 10/05 1813 99 10/05 181 99.2 104 20 140/87 99 Room Air 51-yr male with past medical history of hyperlipidemia, presented with chief complaints of nausea, vomiting, diarrhea , generalized body ache for 2 weeks. Patient was diagnosed with UTI by PCP, he did not take the Bactrim prescribed by the PCP and came to the ED where he was found to have fever of 101.8, blood cultures were drawn and he was sent home on ciprofloxacin. Patient took two doses of the cipro when he was called by the ED that his blood culture is growing Gram negative rods and he came back to the ED. He is admitted for sepsis of urologic origin and is started on IV ceftriaxone. A/p- Sepsis secondary to acute pyelonephritis and acute cystitis-blood cultures growing Escherichia coli sensitive to cefazolin and ciprofloxacin. Continue patient on IV ceftriaxone. Still having fevers so we will continue to monitor him closely for now. Hypomagnesemia severe-Will replace IV with the 4 g magnesium sulfate and recheck level in the morning. Hypokalemia-replace and recheck in a.m. discussed with patient the care plan
[2016-10-06 22:28] VITALS: BP 130/70
[2016-10-07 07:01] VITALS: BP 130/90
--- NOTE | 2016-10-07 09:07 | PN- Housestaff ---
JOSE M OSORIO MD 10/07/16 0906: Subjective Follow-up For: Urinary tract infection Sepsis Subjective: Patient seen and examined. He is seen sitting upright in bed resting comfortably. He appears to be in no acute distress. He reports having a fever yesterday but states that it "broke" and has not yet returned. He also admits to multiple episodes of diarrhea yesterday states that he has not had a bowel movement yet today. Otherwise he feels well and is in good spirits. He denies any lightheadedness/dizziness, headache, fever, chills, chest pain, palpitations, shortness of breath, cough, nausea, vomiting. No overnight events reported. Review of Systems Constitutional: Reports: see HPI. Objective Last 24 Hrs of Vital Signs/I&O Vital Signs Date Time Temp Pulse Resp B/P Pulse O2 O2 Flow FiO2 Ox Delivery Rate 10/07 0701 98.0 78 16 130/90 94 Room Air 10/06 2228 99.0 97 20 130/70 94 Room Air 10/06 2007 99.0 10/06 1703 100.3 10/06 1412 99.0 91 20 130/72 91 10/06 1251 99.0 10/06 1152 101.0 Intake & Output 10/07 1600 10/07 0800 10/07 0000 Intake Total 920 420 Output Total Balance 920 420 Intake, IV 800 300 Intake, Oral 120 120 Number 0 Bowel Movements Physical Exam General Appearance: Cooperative, No Acute Distress Other Physical Findings: General -well-developed, well-nourished middle-aged male in no acute distress HEENT - NCAT, PERRL, EOMI, anicteric sclera, moist mucous membranes Cardio - S1, S2 w/o murmurs/gallops/rubs Resp - CTA bilaterally w/o wheezing/rhochi/crackles GI - soft, nontender, nondistended, bowel sounds present Neuro - Awake and alert, CN II - XII grossly intact Extremities - no edema, pulses intact Current Medications: Current Medications Sig/Claudette Start time Last Medication Dose Route Stop Time Status Admin Acetaminophen 650 MG .STK-MED ONE 10/06 1651 DC PO 10/06 1652 Acetaminophen 650 MG Q6P PRN 10/05 2215 AC 10/06 PO 1703 Atorvastatin Calcium 20 MG DAILY 10/06 1000 AC 10/07 PO 0953 Ceftriaxone Sodium 1,000 MG 1700 10/06 1700 AC 10/06 IV 1703 Docusate Sodium 100 MG BID 10/06 1345 AC PO Enoxaparin Sodium 40 MG DAILY 10/06 1000 AC SC Ezetimibe 10 MG DAILY 10/06 1000 AC 10/07 PO 0953 Magnesium Sulfate 1 GM Q2H 10/06 2000 DC Dextrose/Water 100 ML IV 10/06 2359 Magnesium Sulfate 1 GM Q2H 10/06 1445 DC Dextrose/Water 100 ML IV 10/06 1844 Magnesium Sulfate 1 GM Q2H 10/06 0930 DC 10/06 Dextrose/Water 100 ML IV 10/06 1329 1434 Multivitamins 1 TAB DAILY 10/06 1000 AC 10/07 Therapeutic PO 0953 Patient Medication 1 ED .STK-MED ONE 10/06 1356 [facility] Teaching ED 10/06 1357 Polyethylene Glycol 17 GM DAILY 10/06 1343 AC PO Senna 187 MG AT BEDTIME 10/06 1345 AC PO Sodium Chloride 1,000 ML Q10H 10/05 2215 AC 10/07 IV 0054 Last 24 Hrs of Lab/[place] Results Last 24 Hrs of Labs/Mics: Laboratory Tests 10/06/16 2000: Magnesium 2.4 H Assessment/Plan Assessment: Patient continues to remain afebrile without leukocytosis on intravenous antibiotics. Urine culture obtained from the ED demonstrates growth of Escherichia coli sensitive to ciprofloxacin. Patient is to be discharged home today with instruction to complete his recently prescribed course of ciprofloxacin to complete a total antibiotic course of 14 days. He is instructed to follow-up with his PCP at [facility] within a week of discharge and to establish care with a urologist for further evaluation and investigation of his urinary tract infection. Problem list: -Urinary tract infection -Escherichia coli bacteremia -Sepsis Plan: -General medicine -Ceftriaxone 1 g IV daily, switch to oral ciprofloxacin on discharge -Pain pathway -DVT prophylaxis -Outpatient urology evaluation -Discharge to home today Problem List: 1. Urinary tract infection Pain Ratin Pain Location: None Pain Goal: Remain pain free Pain Plan: Pain Pathway Tomorrow's Labs & Rationales: None JAVID ESCOBAR MD 10/07/16 1325: Attending MD Review Statement Attending Statement Attending MD Statement: examined this patient, discuss w/resident/PA/BUN PANNER, agreed w/resident/PA/BUN PANNER, discussed with family, reviewed EMR data (avail), discussed with nursing, discussed with case mgmt, reviewed images Attending Assessment/Plan: Patient feels completely well. He is sitting with his walking all over the unit. He is a 51-year-old male with a past medical history of hyperlipidemia who is here with gram-negative bacteremia of urological origin. He was recalled when his blood cultures came back positive, it's a sensitive Escherichia coli and he already has ciprofloxacin at home. His white count has come down nicely his fever curve has come down and his pressure is okay. I spoke to him and his at length and explained the need to complete the antibiotic course for a total of 14 days with by mouth Cipro for the bacteremia, the need for close urological follow-up and the fact that a male with UTI and male with UTI and bacteremia is unusual and this definitely needs follow-up and to keep himself hydrated at all times. Stable for discharge with outpatient follow-up. LUZ MCCURDY,JAVID 10/07/16 1325: Attending MD Review Statement Attending Statement Attending MD Statement: examined this patient, discuss w/resident/PA/BUN PANNER, agreed w/resident/PA/BUN PANNER, discussed with family, reviewed EMR data (avail), discussed with nursing, discussed with case mgmt, reviewed images Attending Assessment/Plan: Patient feels completely well. He is sitting with his walking all over the unit. He is a 51-year-old male with a past medical history of hyperlipidemia who is here with gram-negative bacteremia of urological origin. He was recalled when his blood cultures came back positive, it's a sensitive Escherichia coli and he already has ciprofloxacin at home. His white count has come down nicely his fever curve has come down and his pressure is okay. I spoke to him and his at length and explained the need to complete the antibiotic course for a total of 14 days with by mouth Cipro for the bacteremia, the need for close urological follow-up and the fact that a male with UTI and male with UTI and bacteremia is unusual and this definitely needs follow-up and to keep himself hydrated at all times. Stable for discharge with outpatient follow-up.
--- NOTE | 2016-10-07 12:55 | Patient Discharge Instructions ---
Discharge Instructions General Discharge Information Special Instructions: Follow up with your PCP after discharge for further evaluation. Schedule an appointment with a urologist for further evaluation after dischage. Continue to take ciprofloxacin as previously directed. Acute Coronary Syndrome Inclusion Criteria At DC or during hospital stay patient has or had the following: ACS DIAGNOSIS No Discharge Core Measures Meds if any: Prescribed or Continued at Discharge Meds if any: NOT Prescribed or Continued at Discharge Congestive Heart Failure Inclusion Criteria At DC or during hospital stay patient has or had the following: CHF DIAGNOSIS No Discharge Core Measures Meds if any: Prescribed or Continued at Discharge Meds if any: NOT Prescribed or Continued at Discharge Cerebrovascular accident Inclusion Criteria At DC or during hospital stay patient has or had the following: CVA/TIA Diagnosis No Discharge Core Measures Meds if any: Prescribed or Continued at Discharge Meds if any: NOT Prescribed or Continued at Discharge Venous thromboembolism Inclusion Criteria VTE Diagnosis No VTE Type NONE VTE Confirmed by (Test) NONE Discharge Core Measures - Per Current guidelines, there needs to be overlap - treatment for the first 5 days of Warfarin therapy. - If discharged on Warfarin prior to 5 days of - overlap therapy, the patient will need to be - assessed for post discharge needs including - *Post discharge parental anticoagulation - *Warfarin and/or parental anticoagulation education - *Follow up date to check INR post discharge At least 5 days overlap therapy as Inpatient No Meds if any: Prescribed or Continued at Discharge Note: Overlap Therapy is Warfarin and Anticoagulant Meds if any: NOT Prescribed or Continued at Discharge
--- NOTE | 2016-10-07 14:51 | Discharge Summary ---
Visit Information Visit Dates Admission Date: 10/05/16 Discharge Date: 10/07/16 Hospital Course Course Attending Physician: CHAVEZ MCCURDY,SHANE Muse Primary Care Physician: JADA MCKENZIE Hospital Course: Patient is a 51-year-old male with PMH of hyperlipidemia, presented with chief complaints of nausea, vomiting, diarrhea, generalized body ache for 2 weeks. Patient came to [facility] ED where he was found to have fever of 101.8, blood cultures were drawn and he was sent home on ciprofloxacin. Patient had taken two doses of the ciprofloxacin when he was called by the ED that his blood culture was growing G- rods and he was advised to came back to the ED. He was admitted to general medicine floor for sepsis of urologic origin and was started on IV ceftriaxone. Vital signs on admission- temperature 99.2, pulse 104, respiratory rate 20, blood pressure 140/87, SPO2 99% on room air Pertinent labs on admission- WBC 16.7, granulocytes 91.4, K-3.4, creatinine 1.3, urine protein 100, ketones 15, leukocyte Esterase moderate, RBC 5-10, WBC 25-50, blood culture shows gram-negative rods CT scan of The pelvis showed -acute cystitis with associated mild inflammatory changes spreading through the retroperitoneum. Chest x-ray-no any acute cardiopulmonary abnormalities UA: urine protein, urine ketones, urobilinogen high, LE high, RBC 5-10, WBC 25- 50, Hb Mod. The following where addressed during his hospital course: Sepsis secondary to acute pyelonephritis and acute cystitis Blood culture drawn during previous presentation to the ED growing gram-negative rods and patient reported frequency. HE was continued on IV ceftriaxone 1 gram IV once a day during the first day of admission. UC sensitivity reported Ecoli sensitive to Ecoli. Patient remained afebrile during hospital stay, WBC came down to 12.6 (from initial 16.7), BCx2 showed no growth after 5 days, and he was discharged on ciprofloxacin 50 mg BID for 2 weeks. Patient will follow up with PCP after discharge. KENDRA Patient had BUN of 13 and Cr of 1.3 on admission. He was given IV NS with strict intake output charting. Follow up labs showed BUN of 13 and Cr of 1.1 at discharge. Hypomagnesemia and hypokalemia Mg 0.6 on admission, possibly due to inflammation in the kidneys (secondary to infection). We repleted with IV magnesium 4 mg total on the first day of admission. Also he was found to have K of 3.4 received 40 med Kdur. Mg at discharge: 2.4 Hyperlipidemia We continued Crestor, Zetia Diet-heart healthy diet DVT prophylaxis-ALP / SC heparin CODE STATUS-full code Allergies: Coded Allergies: No Known Allergies (10/04/16) Significant Procedures: SERVICE DATE: 10/04/16160 EXAM TYPE: CAT - CT ABD & PELVIS W IV CONTRAST EXAMINATION: CT ABDOMEN AND PELVIS WITH CONTRAST CLINICAL INFORMATION: Warm boggy prostate. Evaluate for intra-abdominal abscess. COMPARISON: None. TECHNIQUE: Multidetector CT volumetric acquisition of the abdomen and pelvis was performed after the administration of 95 mL of intravenous Optiray 320. The data set was reformatted in the sagittal and coronal planes and reviewed on an independent workstation. DLP: 311.39 mGy-cm. FINDINGS: LOWER CHEST: Mild dependent atelectasis is seen in the lung bases bilaterally. LIVER, GALLBLADDER, BILIARY TREE: Liver normal size and attenuation. No focal cystic or solid mass or intra-or extrahepatic ductal dilatation. Hepatic and portal veins patent. Gallbladder well distended and within normal limits. PANCREAS: Mildly atrophic. No ductal dilatation, mass, or surrounding stranding. SPLEEN: Normal size and appearance. Splenic vein patent. ADRENAL GLANDS AND KIDNEYS: Adrenal glands normal. Kidneys bilaterally symmetric in size and function. No focal mass, hydronephrosis, or nephrolithiasis. There is, however, prominent bilateral perinephric stranding and slight thickening of Gerota's fascia. There is also small amount of retroperitoneal edema seen tracking along the anterior pararenal space into the pelvis anterior to the aorta and the aortic bifurcation. URETERS AND BLADDER: Ureters decompressed and within normal limits. Bladder only partially distended and suboptimally assessed, but there is diffuse mucosal hyperenhancement and diffuse hyperemia in the pericystic fat. PELVIC ORGANS: Prostate gland is not enlarged and overall unremarkable in appearance. Seminal vesicles appear slightly rounded and may be mildly edematous. The periprostatic fat is unremarkable. No focal abscess collection is seen. GASTROINTESTINAL TRACT: Nonspecific mild fluid distention of ileal small bowel loops is seen, perhaps a subtle ileus pattern. No bowel wall thickening, mucosal hyperenhancement or mesenteric edema or hyperemia is noted. The colon is decompressed and unremarkable. Appendix in right lower quadrant normal. LYMPHOVASCULAR STRUCTURES: Abdominal aorta normal in caliber. No abdominal or pelvic adenopathy is seen. BONES: Mild multilevel vertebral spondylosis is seen in the thoracolumbar spine. IMPRESSION: The predominant finding is that of diffuse prominent retroperitoneal stranding and mild edema extending from the level of the kidneys down to the bladder. The bladder is diffusely thick-walled and shows mucosal hyperenhancement and surrounding hyperemia. Findings are suspicious for acute cystitis with associated mild inflammatory changes spreading through the retroperitoneum. No focal drainable abscess collection is seen. By imaging, the prostate gland appears unremarkable. Seminal vesicles may be mildly edematous. DICTATED BY: IMAN CLANCY MD DATE/TIME DICTATED:10/04/161706 ROOM SERVER:KRYSTLE DATE/TIME TRANSCRIBED:10/04/161706 SERVICE DATE: 10/04/16 EXAM TYPE: RAD - XRY-PORTABLE CHEST XRAY EXAMINATION: XR PORTABLE CHEST CLINICAL INFORMATION: Fatigue and tachycardia. Sepsis. Evaluate for pneumonia. COMPARISON: None TECHNIQUE: Portable AP view of the chest was obtained. FINDINGS: Lungs are hypoinflated and without focal consolidation or interstitial edema. There is no pleural effusion or pneumothorax. Cardiac silhouette is normal in size. The mediastinal and hilar contours are normal. Bones are unremarkable. IMPRESSION: No acute findings; no evidence of pneumonia, pulmonary edema or pleural effusion. DICTATED BY: CATHY REYNOLDS MD DATE/TIME DICTATED:10/04/161552 ROOM SERVER:GARNICA DATE/TIME TRANSCRIBED:10/04/161552 Pertinent Lab Results: 10/05/16 1641: Urine Color YEL, Urine Clarity CLEAR, Urine pH 6.0, Ur Specific [place] 1.010, Urine Protein 100 H, Urine Ketones 15 H, Urine Nitrite NEG, Urine Bilirubin NEG, Urine Urobilinogen 2.0 H, Ur Leukocyte Esterase MOD H, Ur Microscopic SEDIMENT EXAMINED, Urine RBC 5-10 H, Urine WBC 25-50 H, Ur Epithelial Cells FEW, Urine Hemoglobin MOD H, Urine Glucose NEG 10/05/16 1433: Anion Gap 14, Estimated GFR 59 L, BUN/Creatinine Ratio 10.0, Glucose 123 H, Lactic Acid 1.3, Calcium 8.3 L, CBC w Diff MAN DIFF ORDERED, RBC 4.36 L, MCV 96.4 H, MCH 32.2 H, RDW 13.2, MPV 6.6 L, Gran % 91.4 H, Lymphocytes % 3.8 L , Monocytes % 4.4, Eosinophils % 0.1, Basophils % 0.3, Absolute Granulocytes 15.2 H, Segmented Neutrophils 89 H, Band Neutrophils 5, Absolute Lymphocytes 0.6 L, Lymphocytes 1 L, Monocytes 5, Absolute Monocytes 0.7 H, Absolute Eosinophils 0, Absolute Basophils 0, Platelet Estimate ADEQUATE, Normocytic RBCs VERIFIED, Normochromic RBCs VERIFIED, PUBS MCHC 33.4 Disposition Summary Disposition Principal Diagnosis: Sepsis secondary to acute pyelonephritis and cystitis Additional Diagnosis: KENDRA, Hypomagnesemia, Hypokalemia, History of HLD Discharge Disposition: home or self care Discharge Instructions General Discharge Information Code Status: Full Code Patient's Diet: Heart Healthy Patient's Activity: as tolerated Follow-Up Instructions/Appts: Follow up with your PCP after discharge for further evaluation. Schedule an appointment with a urologist for further evaluation after dischage. Continue to take ciprofloxacin as previously directed. Medications at Discharge Discharge Medications: Continue taking these medications: Ezetimibe (Zetia) 10 MG TABLET 1 Tablet ORAL DAILY Qty = 90 Comments: taken 225 at 1100am Ciprofloxacin HCl (Ciprofloxacin HCl) 500 MG TABLET 1 Tablet ORAL TWICE DAILY Qty = 28 Rosuvastatin Calcium (Crestor) 20 MG TABLET 1 Tablet ORAL DAILY Qty = 90 Comments: taken 225 at 11am Multivitamin (Multi-Day Vitamins) 1 EACH TABLET 1 Tablet ORAL DAILY Comments: taken 2 at 11am Copies To: JADA MCKENZIE Attending Review Statement Documenting Attending: LUZ MCCURDY,JAVID Au Other Findings: Agree with the above discharge plan. Pt was seen by Dr Aguilar on the day of dischage
== END 2016-10-07 14:29 | DRG 872 ==
LOC: ENRESERVTM → ENRESERVDT → ERH 14:14 → 2NA 19:06 → ERHI 19:06 → ENPENDDIS 19:06 → 2NA 20:40
PROVIDERS: Emergency Medicine; Internal Medicine; ADMIT Student in an Organized Health Care Education/Training Program
DX: A41.51 Sepsis due to Escherichia coli [E. coli] (principal); N17.9 Acute kidney failure, unspecified; N10 Acute pyelonephritis; N30.00 Acute cystitis without hematuria; E78.5 Hyperlipidemia, unspecified; B96.20 Unspecified Escherichia coli [E. coli] as the cause of diseases classified elsewhere; E87.6 Hypokalemia; E83.42 Hypomagnesemia
CPT/HCPCS: 2NASP; 81001; 82436; 87040; 96361; 96374; J0131; J0696; J1650